=== PATIENT | female | born 1980 ===

== ENCOUNTER → 2017-08-09 | Outpatient (CLI) | payer BC ==
[~2017-08-09] MED LIST: PNV1TABL92 PO
== END ==
LOC: LAB 15:37
PROVIDERS: ATTEND Surgery
DX: D17.1 Benign lipomatous neoplasm of skin and subcutaneous tissue of trunk (principal)
CPT/HCPCS: 88305

== ENCOUNTER → 2019-01-23 | Outpatient (CLI) | payer OTHER ==
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
== END ==
LOC: CT 19:47
PROVIDERS: ATTEND Nurse Practitioner Family
DX: S09.90XA Unspecified injury of head, initial encounter (principal)
CPT/HCPCS: 70450